=== PATIENT | male | born 1965 | race Caucasian/White ===

== ENCOUNTER → 2016-12-09 | Outpatient (CLI) | payer OTHER ==
--- NOTE | 2016-12-09 16:35 | KCIC ---
Renal ultrasound HISTORY: History of renal cell carcinoma and hypertension. FINDINGS: The right kidney was surgically removed in 2004. Left kidney measures 13.2 cm longitudinal without hydronephrosis or obvious lesion. The urinary bladder is incompletely distended. Prostate gland measures approximately 4.3 cm x 3.3 cm x 4.1 cm. There is a central hyperechoic area within the prostate. IMPRESSION: 1. No evidence of sonographic abnormality of the left kidney. 2. Small central hyperechoic area within the prostate gland, uncertain significance. This could represent a mass. MR of the prostate gland could further evaluate. Electronically signed by: Ousmane Reyna MD (12/09/2016 4:32 PM)
== END | disposition home or self-care (01) ==
LOC: KCIC US 13:08
PROVIDERS: ATTEND Family Medicine
DX: R31.29 Other microscopic hematuria (principal); Z85.528 Personal history of other malignant neoplasm of kidney
CPT/HCPCS: 76770

== ENCOUNTER → 2016-12-19 | Outpatient (CLI) | payer OTHER ==
[~2016-12-19] MED LIST: ASPI-482 PO; FEXO180T81 PO; FLUT9.9S NS; GADOBUTROL 7.5 MMOL/7.5 ML VIAL IV ONE; MOME45CR2 TP; PSYL1CAP4 PO; QUIN20TA7 PO; VALA500T5 PO
--- NOTE | 2016-12-22 09:56 | KCIC ---
MRI of the pelvis without and with contrast 12/19/2016 CLINICAL HISTORY: Hyperechoic area seen in prostate gland on recent ultrasound. TECHNIQUE: Unenhanced T1-weighted axial and coronal, T2 weighted sagittal, axial and coronal and fat saturated T2-weighted sagittal and axial and coronal images of the pelvis with attention to the prostate gland were obtained. After intravenous administration of 11 cc of Gadavist, enhanced fat saturated T1 weighted axial and coronal images were obtained. FINDINGS: Comparison is made to the patient's renal ultrasound study dated 12/09/2016. The prostate gland is mildly enlarged. It measures 4.2 x 4.5 x 3.8 cm in greater coronal, transverse and AP dimensions. It is slightly heterogeneous in signal intensity. No discrete mass lesion is definitely visualized. No abnormal contrast enhancement is seen. No pelvic or inguinal lymphadenopathy is noted. No free fluid is seen within the pelvis. The marrow signal of the visualized bony structures is within normal limits. IMPRESSION: The prostate gland is slightly heterogeneous in signal intensity; however, no discrete mass lesion is seen by MRI. Electronically signed by: Benoit Zavala MD (12/22/2016 9:52 AM)
== END | disposition home or self-care (01) ==
LOC: KCIC MRI 10:45
PROVIDERS: ATTEND Family Medicine
DX: N40.0 Benign prostatic hyperplasia without lower urinary tract symptoms (principal); N42.89 Other specified disorders of prostate
CPT/HCPCS: 72197; A9585

== ENCOUNTER → 2020-09-06 | Outpatient (CLI) | payer OTHER ==
[~2020-09-06] MED LIST changes: -GADOBUTROL 7.5 MMOL/7.5 ML VIAL IV ONE; -MOME45CR2 TP; +MOME45CR3 TP; +QUIN20TA17 PO; -QUIN20TA7 PO
--- NOTE | 2020-09-06 16:59 | KCIC ---
EXAMINATION: MRI LEFT LOWER EXTREMITY JOINT WITHOUT INDICATIONS: Left knee pain for 2 to 3 months, heard a pop and felt burning on 09/01/2020. Pain anteri darrin and posteriorly TECHNIQUE: Multiplanar multisequence MRI of the left knee was obtained without contrast. COMPARISON: Left knee radiograph 08/30/2020 FINDINGS: MENISCI: There is complete radial tear at the posterior root-horn junction medial meniscus with a fl uid filled cleft. No meniscal extrusion. The lateral meniscus is intact. LIGAMENTS: Anterior and posterior cruciate ligaments, medial collateral ligament, and lateral collat eral ligament complex are intact. EXTENSOR MECHANISM: The quadriceps and patellar tendons are intact. Fat pads are normal. Retinacula are intact. BONES AND CARTILAGE: No acute fracture. Marrow signal is normal. No focal cartilage defects. OTHER: Mild edema along the posterior medial joint capsule. No significant Ortiz cyst. Small joint e ffusion. IMPRESSION: Complete radial tear of the posterior root-horn junction medial meniscus. Mild adjacent edema along the posterior joint capsule. Electronically signed by: Beckie Gaming MD (09/06/2020 4:56 PM) [id number]
== END ==
LOC: KCIC MRI 13:38
PROVIDERS: ATTEND Orthopaedic Surgery
DX: M25.462 Effusion, left knee (principal)
CPT/HCPCS: 73721

== ENCOUNTER → 2020-10-16 | Outpatient (CLI) | payer OTHER ==
[~2020-10-16] MED LIST changes: +FAMO40TA4 PO; +TADA5TAB PO; +TAMS0.4C97 PO; +TRIA15CR2 TP
== END ==
LOC: LAB 10:47
PROVIDERS: ATTEND Orthopaedic Surgery
DX: Z01.812 Encounter for preprocedural laboratory examination (principal); Z20.822 Contact with and (suspected) exposure to COVID-19
CPT/HCPCS: U0003; U0005

== ENCOUNTER 2020-10-19 06:58 | Day surgery (SDC) | payer OTHER ==
[~2020-10-19] VITALS: Ht 179.1 cm; Wt 111.1 kg
[2020-10-19] MEDS ORDERED: IV RINGERS,LACTATED 1000ML 1,000 ML IV SCH ×2 (07:45→09:45)
[2020-10-19] MEDS ORDERED: LIDOCAINE 1% PF 5 ML VIAL. ONE (08:04)
[2020-10-19] MEDS ORDERED: PROPOFOL 10 MG/ML (20ML) VIAL. IV ONE (08:04)
[2020-10-19] MEDS ORDERED: fentaNYL PF VIAL 100 MCG/2 ML VIAL ONE (08:04)
[2020-10-19] MEDS ORDERED: EPINEPHrine VIAL 30 MG/30 ML VIAL ONE (08:28)
[2020-10-19] MEDS ORDERED: BUPIVACAINE-EPI 0.25% 30 ML VIAL KIT. ONE ×2 (08:28)
[2020-10-19] MEDS ORDERED: SEVOFLURANE 16 TO 30 MINUTES. IH ONE (08:56)
[2020-10-19] MEDS ORDERED: ONDANSETRON PF 4 MG/2 ML VIAL. ONE (08:56)
--- NOTE | 2020-10-19 09:32 | PDOC4 ---
Operative Note Operative Note Date of Procedure: October 19, 2020 Preoperative Diagnosis: left knee medial meniscus tear Postoperative Diagnosis: complex tear of medial meniscus, current injury, left knee, initial encounter S83.232A Procedures Performed: left knee arthroscopy, surgical, with meniscectomy, MEDIAL, including meniscal shaving, including debridement/shaving of articular cartilage (chondroplasty) CPT 86202 Surgeon: Steven Muñoz MD Refractory Tile Helper: NASIR Llanes Anesthesia: General Estimated Blood Loss: 10 mL Specimens: none Drains: none Complications: none Tourniquet time: 19 minutes at 300 mm Hg Indications for Procedure: The patient is a 54-year-old with left knee pain, unrelieved with nonoperative treatment. Exam and MRI are consistent with a meniscus tear. We talked about the risks and benefits of proceeding with an arthroscopic procedure. We talked about potential risks of ongoing pain, progressive arthritis, bleeding, infection, blood clots, or other potential surgical or anesthetic complications. All of the patient's questions about surgery were answered and they desired to proceed. Written consent was obtained. Description of Operation: The patient was identified in the preoperative holding area. The correct left knee was marked by me. The patient was taken to the operating room, where a general anesthetic was used. Preoperative antibiotics were given intravenously. A time-out procedure was performed. A tourniquet was placed on the upper thigh. Local anesthetic 20 mL of 0.25% bupivacaine was injected using sterile technique into the knee joint. The limb was prepared circumferentially with ChloraPrep solution and sterile waterproof arthroscopy drapes were applied. The limb was exsanguinated with an Esmarch bandage and the tourniquet was inflated. Lateral and medial arthroscopy portals were established. The medial meniscus showed a complex unrepairable tear with unstable flaps. This was a radial root tear at the posterior horn, which detached the entire posterior one-third of the medial meniscus making the posterior one-third unstable. A meniscectomy was performed with basket forceps and the motorized shaver back to a smooth stable base, and the resection tapered into the middle one-third of the meniscus. The medial tibiofemoral joint showed chondromalacia Outerbridge grade I, so no chondroplasty was required.The intercondylar notch was free of loose bodies, and the ACL was intact. The lateral tibiofemoral joint showed a normal lateral meniscus, so no lateral meniscectomy was required.The lateral articular surfaces showed chondromalacia Outerbridge grade I, so no chondroplasty was required. The patellofemoral joint showed chondromalacia Outerbridge grade I, so no chondroplasty was required. The suprapatellar pouch, medial and lateral gutters were free of loose bodies. Copious irrigation was used to drain all meniscal and chondral fragments, and the knee was drained of fluid. The portals were closed with #3-0 Prolene interrupted sutures. Additional local anesthetic, 30 mL of 0.25% bupivacaine with epinephrine was injected. A bulky sterile dressing was applied and the tourniquet was released. Needle and sponge counts were correct and there were no apparent complications. STEVEN MUÑOZ MD Oct 19, 2020 09:32
[2020-10-19] MEDS ORDERED: HYDROmorphone 2 MG/ML VIAL IVP PRN (09:45)
[2020-10-19] MEDS ORDERED: fentaNYL PF VIAL 100 MCG/2 ML VIAL IVP PRN ×2 (09:45)
[2020-10-19] MEDS ORDERED: PROCHLORPERAZINE 10 MG/2 ML VIAL. IVP PRN (09:45)
[2020-10-19] MEDS ORDERED: HYDROcodone/APAP 7.5/325MG 1 TAB TABLET ONE (10:21)
[2020-10-19 10:30] VITALS: BP 111/63
[2020-10-19] MEDS ORDERED: HYDROcodone/APAP 7.5/325MG 1 TAB TABLET PO ONE (10:30)
== END 2020-10-19 10:55 | disposition home or self-care (01) ==
LOC: SURG 06:58
PROVIDERS: ATTEND Orthopaedic Surgery
DX: S83.232A Complex tear of medial meniscus, current injury, left knee, initial encounter (principal); M94.262 Chondromalacia, left knee; I12.9 Hypertensive chronic kidney disease with stage 1 through stage 4 chronic kidney disease, or unspecified chronic kidney disease; N18.9 Chronic kidney disease, unspecified; K21.9 Gastro-esophageal reflux disease without esophagitis; Z87.440 Personal history of urinary (tract) infections; Z90.49 Acquired absence of other specified parts of digestive tract; Z98.890 Other specified postprocedural states; Z79.899 Other long term (current) drug therapy; Z87.891 Personal history of nicotine dependence; Z72.89 Other problems related to lifestyle; Z88.6 Allergy status to analgesic agent; Z91.013 Allergy to seafood; X58.XXXA Exposure to other specified factors, initial encounter; Y93.89 Activity, other specified; Y92.89 Other specified places as the place of occurrence of the external cause; Y99.8 Other external cause status
CPT/HCPCS: 29881; A4930; J0171; J0690; J2405; J2704; J3010; J3490